=== PATIENT | female | born 1940 | race African-American/Black ===

== ENCOUNTER 2019-04-17 13:44 | Emergency (ER) | payer OTHER, MEDICARE ==
[~2019-04-17] VITALS: Ht 162.6 cm; Wt 60.0 kg
[~2019-04-17 13:44] MED LIST: AMLO10TA80 PO; LETROZOLE PO; PROAIR HFA ORI
[2019-04-17] MEDS ORDERED: ACETAMINOPHEN 500MG TABLET PO ONE (15:30)
[2019-04-17] MEDS ORDERED: IBUPROFEN 400MG TABLET PO ONE (15:30)
[2019-04-17 17:14] VITALS: BP 159/88
== END 2019-04-17 17:15 | disposition home or self-care (01) ==
LOC: ER 13:44
DX: M75.02 Adhesive capsulitis of left shoulder (principal); I10 Essential (primary) hypertension; Z88.1 Allergy status to other antibiotic agents; Z88.2 Allergy status to sulfonamides; Z79.899 Other long term (current) drug therapy; Z90.710 Acquired absence of both cervix and uterus; Z90.13 Acquired absence of bilateral breasts and nipples
CPT/HCPCS: 73030; 99283

== ENCOUNTER 2019-11-23 09:07 | Emergency (ER) | payer MEDICARE, OTHER ==
[~2019-11-23] VITALS: Ht 149.9 cm; Wt 61.0 kg
[2019-11-23] MEDS ORDERED: ONDANSETRON HCL 4MG/2ML INJ IV STA (10:12)
[2019-11-23] MEDS ORDERED: MORPHINE SULFATE 4 MG/ML CPJ (NOT FOR IM USE) IV STA (10:12)
[2019-11-23] MEDS ORDERED: SODIUM CHLORIDE 0.9% 1,000 ML IV ONE (10:15)
[2019-11-23 10:43] LABS: BASOPHILS % 0.6 % (0.0-2.0); EOSINOPHILS % 1.9 % (0.0-5.0); HEMATOCRIT. 38.3 % (36.0-48.0); HEMOGLOBIN. 12.7 g/dL (12.0-16.0); LYMPHOCYTES % 12.3 % (20.0-50.0); MEAN CORPUSCULAR HEMOGLOBIN 30.2 pg (28.0-32.0); MEAN PLATELET VOLUME 9.8 fl (7.4-10.4); MONOCYTES % 5.5 % (2.0-8.0); NEUTROPHILS % 79.7 % (40.0-76.0); PLATELET 205 x1000/uL (130-400); RED BLOOD CELL COUNT 4.21 mill/uL (4.2-5.4); RED CELL DISTRIBUTION WIDTH 13.3 % (11.6-14.6)
[2019-11-23 10:52] LABS: CHLORIDE 108 mEq/L (98-107)
[2019-11-23 10:56] LABS: ETHANOL BLOOD < 10 mg/dL
[2019-11-23 11:04] LABS: CLARITY URINE CLEAR (CLEAR); COLOR URINE YELLOW (YELLOW); KETONES URINE NEGATIVE (NEGATIVE); LEUKOCYTE ESTERASE URINE 1+ (NEGATIVE); NITRITE URINE NEGATIVE (NEGATIVE); OCCULT BLOOD URINE NEGATIVE (NEGATIVE); PROTEIN URINE TRACE (NEGATIVE); UROBILINOGEN URINE 0.2 E.U./dL (0.2-1.0)
[2019-11-23 11:24] LABS: *AMPHETAMINES SCREEN URINE NEGATIVE (NEGATIVE); *BENZODIAZEPINES SCREEN URINE NEGATIVE (NEGATIVE); *COCAINE SCREEN URINE NEGATIVE (NEGATIVE); CANNABINOID URINE SCREEN NEGATIVE (NEGATIVE); OPIATES URINE SCREEN NEGATIVE (NEGATIVE)
[2019-11-23 11:25] LABS: *BARBITURATES SCREEN URINE NEGATIVE (NEGATIVE)
[2019-11-23 11:27] LABS: PHENCYCLIDINE URINE SCREEN NEGATIVE (NEGATIVE)
[2019-11-23 11:39] LABS: METHADONE URINE SCREEN NEGATIVE (NEGATIVE)
[2019-11-23 17:45] VITALS: BP 157/70
== END 2019-11-23 19:44 | disposition short-term general hospital (02) ==
LOC: ER 09:07
DX: R55 Syncope and collapse (principal); I10 Essential (primary) hypertension; Z88.6 Allergy status to analgesic agent; Z88.2 Allergy status to sulfonamides; Z90.10 Acquired absence of unspecified breast and nipple; Z79.899 Other long term (current) drug therapy; Z90.710 Acquired absence of both cervix and uterus
CPT/HCPCS: 36415; 70450; 71045; 80053; 80305; 80320; 81003; 82140; 83605; 83690; 85025; 93005; 96361; 96374; 96375; 99285; J2270; J2405; J7030; G0480

== ENCOUNTER 2020-06-05 14:05 | Emergency (ER) | payer MEDICARE ==
[~2020-06-05] VITALS: Ht 152.4 cm; Wt 57.0 kg
[2020-06-05 15:43] LABS: BASOPHILS % 1.3 % (0.0-2.0); EOSINOPHILS % 2.1 % (0.0-5.0); HEMATOCRIT. 36.6 % (36.0-48.0); HEMOGLOBIN. 12.3 g/dL (12.0-16.0); LYMPHOCYTES % 15.2 % (20.0-50.0); MEAN CORPUSCULAR HEMOGLOBIN 31.1 pg (28.0-32.0); MEAN CORPUSCULAR VOLUME 92.7 fL (81.0-99.0); MONOCYTES % 7.6 % (2.0-8.0); NEUTROPHILS % 73.8 % (40.0-76.0); RED BLOOD CELL COUNT 3.94 mill/uL (4.2-5.4); RED CELL DISTRIBUTION WIDTH 13.5 % (11.6-14.6)
[2020-06-05 15:47] LABS: CHLORIDE 106 mEq/L (98-107)
[2020-06-05 15:51] LABS: ETHANOL BLOOD < 10 mg/dL
[2020-06-05 16:16] LABS: MEAN PLATELET VOLUME 10.6 fl (7.4-10.4); PLATELET 196 x1000/uL (130-400)
[2020-06-05 16:55] LABS: PROTHROMBIN TIME 10.9 sec (9.6-11.0)
[2020-06-05 20:17] LABS: CLARITY URINE CLEAR (CLEAR); COLOR URINE YELLOW (YELLOW); KETONES URINE NEGATIVE (NEGATIVE); LEUKOCYTE ESTERASE URINE NEGATIVE (NEGATIVE); NITRITE URINE NEGATIVE (NEGATIVE); OCCULT BLOOD URINE TRACE (NEGATIVE); PH URINE 7.5 (4.5-8.0); PROTEIN URINE NEGATIVE (NEGATIVE); SPECIFIC GRAVITY URINE 1.008 (1.005-1.030); UROBILINOGEN URINE 0.2 E.U./dL (0.2-1.0)
[2020-06-05 20:36] LABS: *AMPHETAMINES SCREEN URINE NEGATIVE (NEGATIVE); *BARBITURATES SCREEN URINE NEGATIVE (NEGATIVE); *BENZODIAZEPINES SCREEN URINE NEGATIVE (NEGATIVE); *COCAINE SCREEN URINE NEGATIVE (NEGATIVE)
[2020-06-05 20:37] LABS: CANNABINOID URINE SCREEN NEGATIVE (NEGATIVE); METHADONE URINE SCREEN NEGATIVE (NEGATIVE); OPIATES URINE SCREEN NEGATIVE (NEGATIVE); PHENCYCLIDINE URINE SCREEN NEGATIVE (NEGATIVE)
[2020-06-05 22:08] VITALS: BP 143/76
== END 2020-06-05 22:57 | disposition left against medical advice (07) ==
LOC: ER 14:05
DX: R55 Syncope and collapse (principal); G30.9 Alzheimer's disease, unspecified; F02.80 Dementia in other diseases classified elsewhere, unspecified severity, without behavioral disturbance, psychotic disturbance, mood disturbance, and anxiety; I10 Essential (primary) hypertension; Z85.3 Personal history of malignant neoplasm of breast; Z88.2 Allergy status to sulfonamides; Z88.6 Allergy status to analgesic agent; Z88.8 Allergy status to other drugs, medicaments and biological substances; Z91.81 History of falling; Z90.710 Acquired absence of both cervix and uterus; Z98.890 Other specified postprocedural states; W01.0XXA Fall on same level from slipping, tripping and stumbling without subsequent striking against object, initial encounter; Y93.9 Activity, unspecified; Y92.9 Unspecified place or not applicable
CPT/HCPCS: 36415; 70486; 80053; 80305; 80320; 81003; 85025; 93005; 99285; G0480

== ENCOUNTER 2020-08-19 07:08 | Emergency (ER) | payer MEDICARE ==
[~2020-08-19] VITALS: Ht 157.5 cm; Wt 61.0 kg
[2020-08-19 08:33] LABS: HEMATOCRIT. 36.5 % (36.0-48.0); HEMOGLOBIN. 12.1 g/dL (12.0-16.0); MEAN CORPUSCULAR HEMOGLOBIN 30.2 pg (28.0-32.0); MEAN CORPUSCULAR VOLUME 91.2 fL (81.0-99.0); MEAN PLATELET VOLUME 9.9 fl (7.4-10.4); PLATELET 152 x1000/uL (130-400); RED CELL DISTRIBUTION WIDTH 13.5 % (11.6-14.6)
[2020-08-19 08:40] LABS: CHLORIDE 105 mEq/L (98-107); PROTHROMBIN TIME 10.9 sec (9.6-11.0)
[2020-08-19 09:08] LABS: PLATELET ESTIMATE NORMAL
[2020-08-19 09:19] LABS: CLARITY URINE CLEAR (CLEAR); COLOR URINE YELLOW (YELLOW); KETONES URINE NEGATIVE (NEGATIVE); LEUKOCYTE ESTERASE URINE NEGATIVE (NEGATIVE); NITRITE URINE NEGATIVE (NEGATIVE); OCCULT BLOOD URINE 1+ (NEGATIVE); PROTEIN URINE 2+ (NEGATIVE); SPECIFIC GRAVITY URINE 1.014 (1.005-1.030); UROBILINOGEN URINE 0.2 E.U./dL (0.2-1.0)
[2020-08-19] MEDS ORDERED: VANCOMYCIN 1 G PREMIX 200 ML IV ONE (10:30)
[2020-08-19] MEDS ORDERED: PIPERACILLIN/TAZ 3.375G PREMIX 50 ML IV ONE (10:30)
[2020-08-19] MEDS ORDERED: HYDRALAZINE 20MG/ML VIAL IV NR (13:15)
[2020-08-19] MEDS ORDERED: POTASSIUM CHLORIDE 20MEQ TABLET SR PO NR (13:15)
[2020-08-19] MEDS ORDERED: CLONIDINE 0.1MG TABLET PO NR (15:00)
[2020-08-19 19:52] VITALS: BP 161/85
== END 2020-08-19 20:27 | disposition short-term general hospital (02) ==
LOC: ER 07:14 → EDBEDREQSVC 12:12 → EDBEDREQ 12:12 → CANRESERV 16:02 → ENRESERV 16:02 → ER 20:27 → CANBEDREQ 20:31
DX: A41.9 Sepsis, unspecified organism (principal); R65.20 Severe sepsis without septic shock; I10 Essential (primary) hypertension; Z98.890 Other specified postprocedural states; Z88.5 Allergy status to narcotic agent; Z88.2 Allergy status to sulfonamides; Z90.10 Acquired absence of unspecified breast and nipple; Z90.710 Acquired absence of both cervix and uterus
CPT/HCPCS: 36415; 70450; 71045; 73521; 80053; 81003; 83605; 84145; 84484; 85025; 85610; 87040; 87086; 93005; 96365; 96367; 96375; 99291; J0360; J2543; J3370